=== PATIENT | male | born 1965 | race African-American/Black ===

== ENCOUNTER 2018-11-28 17:03 | Inpatient (IN) | payer OTHER ==
[~2018-11-28] VITALS: Ht 182.9 cm; Wt 88.5 kg
[~2018-11-28 17:03] MED LIST: ALLA266C2 TP; ASCO500T9 PO; BISA-79 PO; CEPH500C2 PO; CHOL400T11 PO; DIAZ10TA4 PO; DIAZ5TAB4 PO; DOCU250C14 PO; FENT1PAT10 TD; FERR1TAB44 PO; Folic Acid PO; Gel Dressing TP; HYDR4TAB57 PO; IVER3TAB2 PO; LACT10SO PO; LORA10TA7 PO; LORA2TAB PO; MULT-24 PO; OXYC-133 PO; ZOLP10TA6 PO
[2018-11-28] MEDS ORDERED: MORPHINE SULFATE INJ 2 MG/ML DISP.SYRIN IV ONE (17:30)
[2018-11-28] MEDS ORDERED: ONDANSETRON HCL/PF 4 MG/2 ML VIAL IVP ONE (17:30)
[2018-11-28] MEDS ORDERED: IV NS 0.9% 1,000 ML BAG IV ONE (17:30)
--- NOTE | 2018-11-28 17:48 | NUR ---
PT TO CT VIA GLORY
--- NOTE | 2018-11-28 18:06 | NUR ---
HUBERT RA 860 from [facility] "Headache. HTN". PT AAOX3, VSS. DENIES CP, SOB, DIZZINESS @ THIS TIME. RR EVEN & UNLABORED. SEEN & EVAL'D BY KAYA MONREAL. WILL CONT TO MONITOR.
--- NOTE | 2018-11-28 18:08 | NUR ---
CALLED NURSING TRACK REPAIRER FOR PICC RN.
[2018-11-28 18:14] LABS: BASOPHILS # (AUTO) 0.1 /CMM (0.0-0.2); BASOPHILS % (AUTO) 0.8 % (0.0-2.0); HEMATOCRIT 40 % (39-51); HEMOGLOBIN 12.9 g/dL (13.5-17.5); LYMPHOCYTES # (AUTO) 1.2 /CMM (0.8-4.8); LYMPHOCYTES % (AUTO) 7.1 % (20.0-44.0); MEAN CORPUSCULAR HGB CONC 32 g/dl (31.0-36.0); MEAN CORPUSCULAR VOLUME 83 fL (80-96); MONOCYTES # (AUTO) 1.6 /CMM (0.1-1.30); MONOCYTES % (AUTO) 9.7 % (2.0-12.0); NEUTROPHILS # (AUTO) 13.6 /CMM (1.8-8.9); NEUTROPHILS % (AUTO) 82.4 % (43.0-81.0); PLATELET COUNT (AUTO) 551 /CMM (150-450); RED BLOOD CELL COUNT(AUTO) 4.79 MIL/uL (4.5-6.0); WHITE BLOOD COUNT (AUTO) 16.5 K/uL (4.3-11.0)
--- NOTE | 2018-11-28 18:20 | NUR ---
CALLED [facility] TO [facility] [phone]. SPOKE WITH STAFF AND REQUESTED FOR MEDICAL RECORD.
[2018-11-28] MEDS ORDERED: MORPHINE SULFATE INJ 4 MG/ML DISP.SYRIN ONE ×2 (18:27→21:03)
[2018-11-28] MEDS ORDERED: MORPHINE SULFATE INJ 2 MG/ML DISP.SYRIN IM ONE ×2 (18:30→21:00)
--- NOTE | 2018-11-28 18:33 | NUR ---
MEDICATED FOR PAIN PER JOCELIN'S PA ORDER. PT CARLOS WELL.
[2018-11-28 18:44] LABS: CALCIUM, SERUM 9.7 mg/dL (8.5-10.1); CREATININE 0.8 mg/dL (0.6-1.3); POTASSIUM 3.8 mmol/L (3.5-5.1)
[2018-11-28 18:48] LABS: ALBUMIN 3.8 g/dL (3.4-5.0); BILIRUBIN,DIRECT 0.1 mg/dL (0.0-0.2); BILIRUBIN,TOTAL 0.4 mg/dL (0.2-1.0); TOTAL PROTEIN, SERUM 11.2 g/dL (6.4-8.2)
[2018-11-28] MEDS ORDERED: ASPIRIN 81 MG TAB.CHEW PO ONE (19:00)
--- NOTE | 2018-11-28 19:00 | NUR ---
PT REFUSED ASA 325 MG, KAYA MONREAL AWARE.
[2018-11-28 19:06] LABS: APPEARANCE,URINE Slightly Cloudy (CLEAR); BILIRUBIN,URINE Negative (NEGATIVE); BLOOD, URINE Large Ery/uL (NEGATIVE); COLOR,URINE Yellow (YELLOW); KETONES,URINE 40 (NEGATIVE); LEUKOCYTE ESTERASE ,URINE Moderate (NEGATIVE); NITRITE, URINE Positive (NEGATIVE); PH,URINE 8.5 (5.0-8.0); PROTEIN,URINE >=300 mg/dl (NEGATIVE); UGLUCOSE Negative (NEGATIVE); UROBILINOGEN,URINE 0.2 EU/dL (0.2)
[2018-11-28 19:31] LABS: BACTERIA,URINE 1+ /HPF (None Seen); RBC,URINE TOO NUMEROUS TO COUN /HPF (0-2); WBC,URINE 51-80 /HPF (0-3)
--- NOTE | 2018-11-28 19:32 | NUR ---
CALLED NURSING SUP TO NOTIFY ABOUT MIDLINE PLACEMENT.
[2018-11-28] MEDS ORDERED: LORAZEPAM INJ 2 MG/ML VIAL ONE ×2 (19:53→22:48)
--- NOTE | 2018-11-28 19:59 | NUR ---
MEDICATED PER JOCELIN KIRKPATRICK'S ORDER. PT REQUESTING MED TO RELAX HIM. PT CARLOS WELL.
[2018-11-28] MEDS ORDERED: CEFTRIAXONE 1GM BAG (ER ONLY) 1 GM/50 ML PIGGYBACK IV ONE (20:00)
[2018-11-28] MEDS ORDERED: LORAZEPAM INJ 2 MG/ML VIAL IM ONE (20:00)
--- NOTE | 2018-11-28 21:51 | NUR ---
CALLED RN SUP FOR TELE BED
--- NOTE | 2018-11-28 22:18 | NUR ---
RECIEVED BED 120-2
--- NOTE | 2018-11-28 22:30 | NUR ---
LAKSHMI, PICC LINE RN @ BS FOR MIDLINE INSERTION
--- NOTE | 2018-11-28 22:32 | NUR ---
DR. NAVAS SPEAKING TO KAYA LUJAN REGARDING ADMISSION.
[2018-11-28] MEDS ORDERED: CEFTRIAXONE 1GM BAG (ER ONLY) 50 ML IV ONE (22:34)
--- NOTE | 2018-11-28 22:55 | NUR ---
MEDICATED PER JOCELIN KIRKPATRICK'S ORDER, PT CARLOS WELL.
[2018-11-28] MEDS ORDERED: DEXTROSE 50%-WATER 50 ML DISP.SYRIN IV PRN (23:00)
[2018-11-28] MEDS ORDERED: LORAZEPAM INJ 2 MG/ML VIAL IV ONE (23:00)
[2018-11-28] MEDS ORDERED: CLONIDINE HCL 0.1 MG TABLET PO PRN (23:00)
[2018-11-28] MEDS ORDERED: *INSULIN REGULAR(HUMULIN R)HUM 100 UNIT/ML VIAL SQ PRN (23:00)
[2018-11-28] MEDS ORDERED: INSULIN REGULAR, HUMAN 100 UNIT/ML 3 ML VIAL SQ PRN (23:00)
[2018-11-28] MEDS ORDERED: ASPIRIN EC 81 MG TABLET.DR PO ONE (23:30)
[2018-11-28] MEDS ORDERED: MEROPENEM 500 MG in IV NS 0.9% 50 ML IV ONE (23:45)
[2018-11-28] MEDS ORDERED: METOPROLOL TARTRATE 25 MG TABLET PO ONE (23:45)
[2018-11-29] VITALS (9 sets, daily range): BP systolic 73–132; BP diastolic 45–84
[2018-11-29] MEDS ORDERED: LORAZEPAM INJ 2 MG/ML VIAL IV ONE (02:00)
[2018-11-29] MEDS ORDERED: HYDROMORPHONE HCL 2 MG TABLET PO ONE (02:00)
[2018-11-29] MEDS: IV 1/2NS 1000 ML 1,000 ML IV PRN ×3 (02:27→20:00)
[2018-11-29 05:57] LABS: BASOPHILS # (AUTO) 0.1 /CMM (0.0-0.2); EOSINOPHILS % (AUTO) 0.3 % (0.0-6.0); HEMATOCRIT 33 % (39-51); HEMOGLOBIN 10.8 g/dL (13.5-17.5); LYMPHOCYTES # (AUTO) 1.5 /CMM (0.8-4.8); LYMPHOCYTES % (AUTO) 13.8 % (20.0-44.0); MEAN CORPUSCULAR HGB CONC 33 g/dl (31.0-36.0); MEAN CORPUSCULAR VOLUME 83 fL (80-96); MONOCYTES # (AUTO) 1.1 /CMM (0.1-1.30); MONOCYTES % (AUTO) 10.6 % (2.0-12.0); NEUTROPHILS # (AUTO) 7.9 /CMM (1.8-8.9); NEUTROPHILS % (AUTO) 74.3 % (43.0-81.0); PLATELET COUNT (AUTO) 388 /CMM (150-450); RED BLOOD CELL COUNT(AUTO) 3.99 MIL/uL (4.5-6.0); WHITE BLOOD COUNT (AUTO) 10.7 K/uL (4.3-11.0)
[2018-11-29] MEDS ORDERED: MEROPENEM 500 MG VIAL IV ONE (06:26)
[2018-11-29] MEDS: MEROPENEM 500 MG in IV NS 0.9% 50 ML IV SCH ×3 (06:31→21:30)
--- NOTE | 2018-11-29 07:00 | NUR ---
HEALTH SCIENCE WRITER OPENING RECEIVED PATIENT A/OX4, ABLE TO TALK, ON ROOM AIR, TRACH IN PLACE, NO RESPIRATORY DISTRESS NOTED. TELE ATTACHED TO PATIENT, SINUS RHYTHM 95. COLOSTOMY BAG INTACT/DRAINING. SUPRAPUBIC DRAINING DARK YELLOW URINE. R UA MIDLINE C/D/I, PATENT, INFUSING FLUIDS ORDERED. DESCRIBES PAIN "SOMEONE STANDING ON HIM WITH HEELS". MD AWARE. PATIENT ABLE TO MAKE NEEDS KNOWN, BUT NOT ABLE TO USE CALL LIGHT. WILL CONT TO MONITOR
--- NOTE | 2018-11-29 07:06 | NUR ---
RN NOTES RECEIVED PATIENT VIA STRETCHER FROM ER ACCOMPANIED BY TWO STAFF WITH NO APPARENT DISTRESS, BREATHING EVEN AND UNLABORED. ON ROOM AIR VIA TRACH WITH PMV TOLERATING WELL. COLOSTOMY BAG AND SUPRAPUBIC CATH IN PLACE AND INTACT. SKIN ASSESSMENT DONE, PICTURES TAKEN. SPOKE WITH DR NAVAS AND ORDERED ONE TIME ATIVAN 2MG ONE TIME AND HYDROMORPHONE 4MG 1 TIME FOR PAIN AND ANXIETY. NOTED AND CARRIED OUT. KEPT CLEAN AND DRY. ENDORSED TO NEXT SHIFT FOR CONTINUITY OF CARE.
[2018-11-29] MEDS ORDERED: METOPROLOL TARTRATE 25 MG TABLET PO SCH (09:00)
[2018-11-29] MEDS: BLOOD SUGAR DIAGNOSTIC 1 EACH STRIP VI SCH ×4 (10:25→22:18)
[2018-11-29] MEDS ORDERED: IOHEXOL-350 100 ML VIAL IV ONE (10:53)
[2018-11-29] MEDS ORDERED: IV NS 0.9% 250 ML IV ONE (10:53)
[2018-11-29] MEDS ORDERED: CT SWABBABLE VALVE TRANS SET 1 EA INFUS.SET MC ONE (10:53)
[2018-11-29] MEDS ORDERED: IV NS 0.9% 500 ML IV ONE (11:00)
[2018-11-29] MEDS: LORAZEPAM INJ 2 MG/ML VIAL IV PRN ×3 (11:49→23:54)
[2018-11-29] MEDS ORDERED: NICO-676 TD (12:08)
[2018-11-29] MEDS ORDERED: METH500T7 PO (12:08)
[2018-11-29] MEDS ORDERED: OLOP2.5D5 EACHEYE (12:08)
[2018-11-29] MEDS ORDERED: GUAI118S20 PO (12:08)
[2018-11-29] MEDS ORDERED: ENOX40DI SQ (12:08)
[2018-11-29] MEDS ORDERED: ASCO500T9 PO (12:08)
[2018-11-29] MEDS ORDERED: TEMA15CA PO (12:08)
[2018-11-29] MEDS ORDERED: AMIN30LI24 PO (12:08)
[2018-11-29] MEDS ORDERED: ZINC220C8 PO (12:08)
[2018-11-29] MEDS ORDERED: CYAN-51 PO (12:08)
[2018-11-29] MEDS ORDERED: DIPH25CA83 PO (12:08)
[2018-11-29] MEDS ORDERED: ALBU6.7H9 IH (12:08)
[2018-11-29] MEDS ORDERED: FOLI1TAB16 PO (12:08)
[2018-11-29] MEDS ORDERED: LACTULOSE 10 G/15 ML UDC (PYXIS) PO PRN (14:30)
[2018-11-29] MEDS ORDERED: METHOCARBAMOL (500MG) 500 MG TABLET PO PRN (14:30)
[2018-11-29] MEDS ORDERED: MISCELLANEOUS MED 1 EA EA XX ONE (14:30)
[2018-11-29] MEDS ORDERED: ALBUTEROL FS 2.5 MG/3 ML VIAL.NEB NEB PRN (14:30)
[2018-11-29] MEDS ORDERED: Z GUARD REMEDY 2 OZ OINT TP PRN (14:30)
[2018-11-29] MEDS ORDERED: diphenhydrAMINE HCL 25 MG CAPSULE PO PRN (14:30)
[2018-11-29] MEDS ORDERED: GUAIFENESIN/CODEINE 10 ML UDC PO PRN (14:30)
[2018-11-29] MEDS ORDERED: DIAZEPAM 10 MG TABLET PO PRN (14:30)
--- NOTE | 2018-11-29 16:29 | NUR ---
interior horticulturist Spoke with Channel Rn pt vs sbp 79/50 hr 78 and notified her to contact MD regarding CT scan as test will be inconclusive as hr is not close to 60 Spoke with house sub and notified her regarding the findings will await for md decision regarding the test.
--- NOTE | 2018-11-29 16:45 | NUR ---
2L NS BOLUS GIVEN THIS SHIFT ORDERED PER DR. NAVAS, WHO IS AWARE RADIOLOGY IS UNABLE TO COMPLETE THE ORDERED SCAN Addendum: 11/29/18 at 2038 by ALEXY CARDOZA RN DUE TO LOW BLOOD PRESSURE. SEE DOCUMENTATION
--- NOTE | 2018-11-29 16:45 | NUR ---
ONE EPISODE OF BRADYCARDIA HR 36, 1 PVC + [address] NAVAS AWARE
--- NOTE | 2018-11-29 17:00 | NUR ---
PATIENT COMPLAINING OF HEADACHE, REQUESTING IV PAIN MEDICATION. PER DR. NAVAS, DUE TO LOW BP, NO. OFFERED PO PAIN MED, PATIENT REFUSED
[2018-11-29] MEDS: IV NS 0.9% 1,000 ML IV PRN (18:18)
[2018-11-29] MEDS: PROSOURCE / PROSTAT (PYXIS) 30 ML UDC PO SCH (18:19)
[2018-11-29] MEDS: ENOXAPARIN SODIUM 40 MG/0.4 ML DISP.SYRIN SQ SCH ×3 (21:00→22:04)
[2018-11-29] MEDS: FERROUS SULFATE (325 MG) 325 MG/TAB TABLET PO SCH (21:36)
[2018-11-29] MEDS: ATORVASTATIN 10 MG TABLET PO SCH (21:36)
[2018-11-29] MEDS: oxyCODONE/APAP (5/325 MG) 1 UDTAB TABLET PO PRN (21:41)
[2018-11-29] MEDS ORDERED: TEMAZEPAM 15 MG CAPSULE PO PRN (22:00)
[2018-11-30] VITALS (8 sets, daily range): BP systolic 94–145; BP diastolic 60–91
[2018-11-30] MEDS ORDERED: MORPHINE SULFATE INJ 2 MG/ML DISP.SYRIN SQ PRN (00:30)
[2018-11-30] MEDS: MORPHINE SULFATE INJ 2 MG/ML DISP.SYRIN IV PRN ×5 (01:14→19:21)
[2018-11-30] MEDS: MEROPENEM 500 MG in IV NS 0.9% 50 ML IV SCH ×3 (04:25→21:40)
[2018-11-30] MEDS: IV 1/2NS 1000 ML 1,000 ML IV PRN (04:48)
[2018-11-30] MEDS: LORAZEPAM INJ 2 MG/ML VIAL IV PRN ×3 (06:02→17:56)
[2018-11-30 07:26] LABS: BASOPHILS # (AUTO) 0.1 /CMM (0.0-0.2); BASOPHILS % (AUTO) 1.3 % (0.0-2.0); EOSINOPHILS % (AUTO) 9.3 % (0.0-6.0); HEMATOCRIT 29 % (39-51); HEMOGLOBIN 9.3 g/dL (13.5-17.5); LYMPHOCYTES # (AUTO) 1.7 /CMM (0.8-4.8); MEAN CORPUSCULAR HGB CONC 32 g/dl (31.0-36.0); MEAN CORPUSCULAR VOLUME 84 fL (80-96); MONOCYTES # (AUTO) 0.9 /CMM (0.1-1.30); MONOCYTES % (AUTO) 14.7 % (2.0-12.0); NEUTROPHILS # (AUTO) 2.9 /CMM (1.8-8.9); NEUTROPHILS % (AUTO) 46.7 % (43.0-81.0); PLATELET COUNT (AUTO) 311 /CMM (150-450); RED BLOOD CELL COUNT(AUTO) 3.44 MIL/uL (4.5-6.0); WHITE BLOOD COUNT (AUTO) 6.2 K/uL (4.3-11.0)
[2018-11-30] MEDS: BLOOD SUGAR DIAGNOSTIC 1 EACH STRIP VI SCH ×4 (07:38→22:55)
[2018-11-30 07:44] LABS: CALCIUM, SERUM 8.1 mg/dL (8.5-10.1); CREATININE 0.8 mg/dL (0.6-1.3); POTASSIUM 3.7 mmol/L (3.5-5.1)
--- NOTE | 2018-11-30 07:51 | NUR ---
ELECTRONIC CONSOLE DISPLAY OPERATOR OPENING RECEIVED PATIENT A/OX4, ABLE TO TALK, ON ROOM AIR, TRACH IN PLACE, NO RESPIRATORY DISTRESS NOTED. TELE ATTACHED TO PATIENT, SINUS RHYTHM HR 76 WITH REPORTS OF JUNCTIONAL RHYTHM. COLOSTOMY BAG INTACT/DRAINING. SUPRAPUBIC DRAINING. R UA MIDLINE C/D/I, PATENT, INFUSING FLUIDS ORDERED. PATIENT ABLE TO MAKE NEEDS KNOWN, BUT NOT ABLE TO USE CALL LIGHT. WILL CONT TO MONITOR
[2018-11-30] MEDS: IV NS 0.9% 1,000 ML IV PRN ×2 (08:10→09:58)
[2018-11-30] MEDS ORDERED: IV NS 0.9% 500 ML IV ONE (08:30)
[2018-11-30] MEDS: CARVEDILOL 3.125 MG TABLET PO SCH ×2 (09:30→21:42)
[2018-11-30] MEDS: CYANOCOBALAMIN 500 MCG TABLET PO SCH (12:19)
[2018-11-30] MEDS: ZINC SULFATE 220 MG CAPSULE PO SCH (12:20)
[2018-11-30] MEDS: FOLIC ACID 1 MG TABLET PO SCH (12:20)
[2018-11-30] MEDS: FERROUS SULFATE (325 MG) 325 MG/TAB TABLET PO SCH ×2 (12:20→21:41)
[2018-11-30] MEDS: ASCORBIC ACID 500 MG TABLET PO SCH (12:20)
[2018-11-30] MEDS: NICOTINE PATCH (21MG) 21 MG PATCH.TD24 TD SCH (12:21)
[2018-11-30] MEDS: PROSOURCE / PROSTAT (PYXIS) 30 ML UDC PO SCH ×2 (12:25→17:39)
[2018-11-30] MEDS: ASPIRIN 81 MG TAB.CHEW PO SCH (12:25)
[2018-11-30] MEDS ORDERED: IV NS 0.9% 250 ML IV ONE (13:41)
[2018-11-30] MEDS ORDERED: CT SWABBABLE VALVE TRANS SET 1 EA INFUS.SET MC ONE (13:41)
[2018-11-30] MEDS ORDERED: IOHEXOL-350 100 ML VIAL IV ONE (13:41)
[2018-11-30] MEDS ORDERED: METOPROLOL TARTRATE INJ 5 MG/5 ML AMPUL ONE (13:59)
[2018-11-30] MEDS: oxyCODONE/APAP (5/325 MG) 1 UDTAB TABLET PO PRN ×2 (16:36→22:34)
--- NOTE | 2018-11-30 19:00 | NUR ---
ADMINISTRATIVE JOB TITLES CLOSING NO SIGNIFICANT CHANGES NOTED THROUGHOUT SHIFT. PATIENT CONTINUES TO COMPLAIN OF PAIN. MEDICATED ORDERED. NO RESPIRATORY DISTRESS. ENDORSED TO NOC RN FOR MORIAH
--- NOTE | 2018-11-30 19:58 | NUR ---
LINE O SCRIBE OPERATOR OPENING RECEIVED PATIENT A/OX4, ABLE TO TALK, COMPLAINTS OF CHRONIC GENERALIZED PAIN, ON ROOM AIR, TRACH IN PLACE, NO RESPIRATORY DISTRESS NOTED. TELE ATTACHED TO PATIENT, SINUS RHYTHM HR 90s -100 WITH REPORTS OF JUNCTIONAL RHYTHM. COLOSTOMY BAG INTACT/DRAINING. SUPRAPUBIC DRAINING. R UA MIDLINE CLEAN DRY AND INTACT, PATENT, INFUSING FLUIDS ORDERED. PATIENT ABLE TO MAKE NEEDS KNOWN, BUT NOT ABLE TO USE CALL LIGHT. WILL CONTINUE TO MONITOR ACCORDINGLY.
[2018-11-30] MEDS: ATORVASTATIN 10 MG TABLET PO SCH (21:41)
[2018-12-01] MEDS: MORPHINE SULFATE INJ 2 MG/ML DISP.SYRIN IV PRN ×4 (00:28→14:23)
[2018-12-01 00:40] VITALS: BP 137/77
[2018-12-01 04:45] VITALS: BP 133/81
[2018-12-01] MEDS: MEROPENEM 500 MG in IV NS 0.9% 50 ML IV SCH (05:01)
[2018-12-01 06:47] LABS: BASOPHILS % (AUTO) 0.3 % (0.0-2.0); EOSINOPHILS % (AUTO) 5.4 % (0.0-6.0); HEMATOCRIT 34 % (39-51); HEMOGLOBIN 11.1 g/dL (13.5-17.5); LYMPHOCYTES # (AUTO) 1.9 /CMM (0.8-4.8); MEAN CORPUSCULAR HGB CONC 33 g/dl (31.0-36.0); MEAN CORPUSCULAR VOLUME 83 fL (80-96); MONOCYTES # (AUTO) 0.7 /CMM (0.1-1.30); MONOCYTES % (AUTO) 11.5 % (2.0-12.0); NEUTROPHILS % (AUTO) 50.8 % (43.0-81.0); PLATELET COUNT (AUTO) 346 /CMM (150-450); RED BLOOD CELL COUNT(AUTO) 4.12 MIL/uL (4.5-6.0); WHITE BLOOD COUNT (AUTO) 5.9 K/uL (4.3-11.0)
[2018-12-01 06:58] LABS: CALCIUM, SERUM 8.6 mg/dL (8.5-10.1); CREATININE 0.5 mg/dL (0.6-1.3); POTASSIUM 3.3 mmol/L (3.5-5.1)
[2018-12-01] MEDS: LORAZEPAM INJ 2 MG/ML VIAL IV PRN (07:15)
[2018-12-01] MEDS: IV 1/2NS 1000 ML 1,000 ML IV PRN (07:15)
--- NOTE | 2018-12-01 07:27 | NUR ---
PAPER MACHINE TENDER CLOSING NOTES PATIENT A/OX4, ABLE TO TALK, COMPLAINTS OF CHRONIC GENERALIZED PAIN, ON ROOM AIR, TRACH IN PLACE, NO RESPIRATORY DISTRESS NOTED. TELE ATTACHED TO PATIENT, SINUS RHYTHM HR 90s -100 WITH REPORTS OF JUNCTIONAL RHYTHM. COLOSTOMY BAG INTACT/DRAINING. SUPRAPUBIC DRAINING. R UA MIDLINE CLEAN DRY AND INTACT, PATENT, INFUSING FLUIDS ORDERED. PATIENT ABLE TO MAKE NEEDS KNOWN, ALL NEEDS ATTENDED, PAIN MEDICATION GIVEN PER PATIENT REQUEST FOR CHRONIC GENERALIZED PAIN, NOT ABLE TO USE CALL LIGHT. MONITORED AND CHECKED IN A TIMELY MANNER, ENDORSED TO AM NURSE FOR CONTINUITY OF CARE.
[2018-12-01 08:00] VITALS: BP 165/95
[2018-12-01] MEDS: BLOOD SUGAR DIAGNOSTIC 1 EACH STRIP VI SCH ×2 (08:30→12:13)
[2018-12-01] MEDS: FOLIC ACID 1 MG TABLET PO SCH (08:36)
[2018-12-01 08:37] VITALS: BP 165/95
[2018-12-01] MEDS: CYANOCOBALAMIN 500 MCG TABLET PO SCH (08:37)
[2018-12-01] MEDS: NICOTINE PATCH (21MG) 21 MG PATCH.TD24 TD SCH (08:37)
[2018-12-01] MEDS: ASCORBIC ACID 500 MG TABLET PO SCH (08:37)
[2018-12-01] MEDS: ZINC SULFATE 220 MG CAPSULE PO SCH (08:37)
[2018-12-01] MEDS: CARVEDILOL 3.125 MG TABLET PO SCH (08:37)
[2018-12-01] MEDS: FERROUS SULFATE (325 MG) 325 MG/TAB TABLET PO SCH (08:37)
[2018-12-01] MEDS: ASPIRIN 81 MG TAB.CHEW PO SCH (08:37)
[2018-12-01] MEDS: PROSOURCE / PROSTAT (PYXIS) 30 ML UDC PO SCH (08:38)
[2018-12-01] MEDS ORDERED: LEVO500T75 PO (10:12)
[2018-12-01] MEDS: POTASSIUM CL. PREMIX PERIPHER. 50 ML IV SCH ×2 (10:49→11:50)
[2018-12-01] MEDS ORDERED: LEVOFLOXACIN (500MG) 500 MG TABLET PO SCH (11:00)
--- NOTE | 2018-12-01 16:40 | NUR ---
COMPANY TRUCK DRIVER NOTE PT DISCHARGED TO [facility]. TAKEN BY PARAMEDICS, STABLE UPON DISCHARGE. ALL NEEDS ATTENDANT.
[2018-12-02] MEDS ORDERED: THERAHONEY GEL 1.5 OZ TUBE TP SCH (09:00)
[2018-12-02] MEDS ORDERED: COLLAGENASE 30 GM TUBE TP SCH (09:00)
== END 2018-12-01 17:25 | DRG 720 ==
LOC: ER 17:09 → TELE1 23:23
PROVIDERS: ADMIT Internal Medicine; ATTEND Internal Medicine
PROC: 05H533Z Insertion of Infusion Device into Right Subclavian Vein, Percutaneous Approach (ICD-10-PCS; principal; 2018-11-28)
PROC: 0JBQ0ZZ Excision of Right Foot Subcutaneous Tissue and Fascia, Open Approach (ICD-10-PCS; 2018-12-01)
DX: A41.9 Sepsis, unspecified organism (principal); I21.A1 Myocardial infarction type 2; J96.10 Chronic respiratory failure, unspecified whether with hypoxia or hypercapnia; E87.2 Acidosis; N39.0 Urinary tract infection, site not specified; G89.4 Chronic pain syndrome; F17.210 Nicotine dependence, cigarettes, uncomplicated; I10 Essential (primary) hypertension; Z87.440 Personal history of urinary (tract) infections; D63.8 Anemia in other chronic diseases classified elsewhere; V89.2XXS Person injured in unspecified motor-vehicle accident, traffic, sequela; Z93.3 Colostomy status; F41.9 Anxiety disorder, unspecified; B96.4 Proteus (mirabilis) (morganii) as the cause of diseases classified elsewhere; B96.89 Other specified bacterial agents as the cause of diseases classified elsewhere; G82.20 Paraplegia, unspecified; I70.248 Atherosclerosis of native arteries of left leg with ulceration of other part of lower leg; L97.829 Non-pressure chronic ulcer of other part of left lower leg with unspecified severity; I70.243 Atherosclerosis of native arteries of left leg with ulceration of ankle; L97.329 Non-pressure chronic ulcer of left ankle with unspecified severity; I70.244 Atherosclerosis of native arteries of left leg with ulceration of heel and midfoot; L97.429 Non-pressure chronic ulcer of left heel and midfoot with unspecified severity; I70.242 Atherosclerosis of native arteries of left leg with ulceration of calf; L97.229 Non-pressure chronic ulcer of left calf with unspecified severity; I70.238 Atherosclerosis of native arteries of right leg with ulceration of other part of lower leg; L97.819 Non-pressure chronic ulcer of other part of right lower leg with unspecified severity; I70.234 Atherosclerosis of native arteries of right leg with ulceration of heel and midfoot; L97.419 Non-pressure chronic ulcer of right heel and midfoot with unspecified severity; I70.235 Atherosclerosis of native arteries of right leg with ulceration of other part of foot; L97.519 Non-pressure chronic ulcer of other part of right foot with unspecified severity; L98.429 Non-pressure chronic ulcer of back with unspecified severity
CPT/HCPCS: 36415; 36569; 70450-TC; 71045-TC; 75574; 80048-TC; 80061-TC; 80076-TC; 81000-TC; 82962-TC; 83605-TC; 84484-TC; 85025-TC; 87040-TC; 87081-TC; 87086-TC; 87186-TC; 93307-TC; A4216; A6253; A6403; A7526; G0378; J0696; J1650; J1815; J2060; J2185; J2270; J3480; J3490; J7030; J7050; Q9967

== ENCOUNTER 2019-02-10 00:37 | Emergency (ER) | payer OTHER ==
[~2019-02-10] VITALS: Ht 182.9 cm; Wt 90.8 kg
[~2019-02-10 00:37] MED LIST changes: +ALBU6.7H9 IH; +AMIN30LI24 PO; -BISA-79 PO; -CEPH500C2 PO; -CHOL400T11 PO; +CYAN-51 PO; -DIAZ5TAB4 PO; +DIPH25CA83 PO; -DOCU250C14 PO; +ENOX40DI SQ; -FENT1PAT10 TD; +FOLI1TAB16 PO; -Folic Acid PO; +GUAI118S20 PO; -Gel Dressing TP; -HYDR4TAB57 PO; -IVER3TAB2 PO; +LEVO500T75 PO; -LORA10TA7 PO; -LORA2TAB PO; +METH500T7 PO; -MULT-24 PO; +NICO-676 TD; +OLOP2.5D5 EACHEYE; +TEMA15CA PO; +ZINC1CAP2 PO; -ZOLP10TA6 PO
--- NOTE | 2019-02-10 00:45 | NUR ---
PT BIB EMS TO ER BED 8 [facility]. STATES THAT HE HAD A SYNCOPAL EPISODE 3x LASTING ABOUT 4-10 SECONDS EACH. PT STATES HE HAS HX OF SEIZURE THAT WAS YEARS AGO, HE CAN'T REMEMBER. AAOX4. BREATHING EVENLY AND UNLABORED. CONNECTED TO MONITOR.
[2019-02-10] MEDS ORDERED: IV NS 0.9% 1,000 ML BAG IV ONE (01:00)
--- NOTE | 2019-02-10 01:00 | NUR ---
ADDENDUM: Intravenous End Time Documentation: Normal saline 1 liter (IV-WO) : start time: 0100 AM; end time: 0200 AM: IV site: Right upper Rory Cath Port #1
[2019-02-10 01:12] LABS: APPEARANCE,URINE Cloudy (CLEAR); BILIRUBIN,URINE Negative (NEGATIVE); BLOOD, URINE Large Ery/uL (NEGATIVE); COLOR,URINE Yellow (YELLOW); KETONES,URINE Negative (NEGATIVE); LEUKOCYTE ESTERASE ,URINE Large (NEGATIVE); NITRITE, URINE Negative (NEGATIVE); PH,URINE 7.5 (5.0-8.0); PROTEIN,URINE >=300 mg/dl (NEGATIVE); UGLUCOSE Negative (NEGATIVE); UROBILINOGEN,URINE 0.2 EU/dL (0.2)
[2019-02-10] MEDS ORDERED: LIDOCAINE/PRILOCAINE (5GM) 5 GM TUBE TP ONE (01:13)
--- NOTE | 2019-02-10 01:25 | NUR ---
MOBILE DEVICE DEVELOPER DRAWING BLOOD FROM PATIENT FOR LAB
--- NOTE | 2019-02-10 01:27 | NUR ---
QUALITY MANAGEMENT COORDINATOR AT BEDSIDE FOR X RAY
[2019-02-10] MEDS ORDERED: LIDOCAINE/PRILOCAINE 1 EA KIT TP ONE (01:30)
--- NOTE | 2019-02-10 01:30 | NUR ---
20G MARIAA NEEDLE PLACED ON RIGHT UPPER CHEST PORT-A-CATH.
[2019-02-10 01:45] LABS: CALCIUM, SERUM 9.3 mg/dL (8.5-10.1); CARBON DIOXIDE 23 mmol/L (21-32); CHLORIDE 99 mmol/L (98-107); CREATININE 0.9 mg/dL (0.6-1.3); GLUCOSE 219 mg/dL (74-106); POTASSIUM 3.1 mmol/L (3.5-5.1); SODIUM SERUM 134 mmol/L (136-145); UREA NITROGEN, BLOOD 30 mg/dL (7-18)
[2019-02-10 01:48] LABS: BASOPHILS # (AUTO) 0.1 /CMM (0.0-0.2); BASOPHILS % (AUTO) 0.7 % (0.0-2.0); EOSINOPHILS % (AUTO) 0.1 % (0.0-6.0); HEMATOCRIT 37 % (39-51); HEMOGLOBIN 12.1 g/dL (13.5-17.5); LYMPHOCYTES # (AUTO) 1.3 /CMM (0.8-4.8); LYMPHOCYTES % (AUTO) 5.9 % (20.0-44.0); MEAN CORPUSCULAR HGB CONC 32 g/dl (31.0-36.0); MEAN CORPUSCULAR VOLUME 82 fL (80-96); MONOCYTES # (AUTO) 2.5 /CMM (0.1-1.30); MONOCYTES % (AUTO) 11.8 % (2.0-12.0); NEUTROPHILS # (AUTO) 17.4 /CMM (1.8-8.9); NEUTROPHILS % (AUTO) 81.5 % (43.0-81.0); PLATELET COUNT (AUTO) 377 /CMM (150-450); RED BLOOD CELL COUNT(AUTO) 4.54 MIL/uL (4.5-6.0); WHITE BLOOD COUNT (AUTO) 21.3 K/uL (4.3-11.0)
[2019-02-10 01:51] LABS: ALANINE AMINOTRANSFERASE 23 U/L (12-78); ALBUMIN 3.4 g/dL (3.4-5.0); ALKALINE PHOSPHATASE 138 U/L (46-116); ASPARTATE AMINOTRANSFERASE 20 U/L (15-37); BILIRUBIN,DIRECT 0.2 mg/dL (0.0-0.2); BILIRUBIN,TOTAL 0.6 mg/dL (0.2-1.0); TOTAL PROTEIN, SERUM 9.9 g/dL (6.4-8.2)
[2019-02-10] MEDS ORDERED: LORAZEPAM INJ 2 MG/ML VIAL ONE ×2 (02:11→06:34)
[2019-02-10] MEDS ORDERED: CEFTRIAXONE 1GM BAG (ER ONLY) 50 ML IV ONE (02:27)
[2019-02-10] MEDS ORDERED: LORAZEPAM INJ 2 MG/ML VIAL IV ONE ×2 (02:30→06:30)
[2019-02-10] MEDS ORDERED: CEFTRIAXONE 1 G in IV D5W 50 ML IV ONE (02:30)
[2019-02-10 03:26] LABS: BACTERIA,URINE Many /HPF (None Seen); SQUAMOUS EPITHELIAL CELL,UR Rare /HPF (None Seen); WBC,URINE 21-50 /HPF (0-3)
--- NOTE | 2019-02-10 03:46 | NUR ---
DR. ALEMAN ON THE PHONE WITH MELQUIADES HURD, DR. SAWYER
--- NOTE | 2019-02-10 03:49 | NUR ---
PATIENT IS WATCHING TELEVISION. ALERT AND ORIENTED. PATIENT IS NOT IN ANY DISTRESS. CONNECTED TO MONITOR. WAITING FOR A ROOM IN ADMISSION
--- NOTE | 2019-02-10 04:06 | NUR ---
PER MEHDI ([facility] MILL OPERATOR, ). PT WILL BE TRANSFERRED TO [facility], PENDING MD TO .
--- NOTE | 2019-02-10 04:46 | NUR ---
TRANSFER INFO: PT WILL BE TRANSFERED TO [facility] PER INSURANCE REQUEST NUMBER FOR REPORT: [phone] NURSE FOR REPORT: ROSANA ARNETT WILL CALL BACK WITH TRANSPORTATION ETA
--- NOTE | 2019-02-10 04:55 | NUR ---
REPORT GIVEN TO ROSANA AHMADI FOR MORIAH.
--- NOTE | 2019-02-10 05:01 | NUR ---
ROSANA RN CONTACT CALL BACK FOR ETA OF TRANSPORTATION - [phone]
--- NOTE | 2019-02-10 05:50 | NUR ---
MEHDI FROM [facility] CALLED RE: PT TRANSFER TO [facility] . PT IS GOING TO ROOM 218 B CALL REPORT TO GALDINO WAYNE AT [phone]
--- NOTE | 2019-02-10 05:53 | NUR ---
[facility]A IS PICKING UP PT AT [phone]
--- NOTE | 2019-02-10 06:31 | NUR ---
[facility] CALLED REGARDING TRANSPORTATION ETA
--- NOTE | 2019-02-10 07:25 | NUR ---
report given Jorge AHMADI. for MORIAH
--- NOTE | 2019-02-10 07:25 | NUR ---
RECEIVED REPORT FOR GALDINO BREWRE FOR MORIAH, PT IS AAOX3, NOT IN RESPIRATORY, VS STABLE, KEPT RESTED AND COMFORTABLE, AWAITING AMBULANCE FOR TRANSFER TO [facility].
[2019-02-10] MEDS ORDERED: MORPHINE SULFATE INJ 4 MG/ML DISP.SYRIN ONE (07:50)
[2019-02-10] MEDS ORDERED: MORPHINE SULFATE INJ 2 MG/ML DISP.SYRIN IV ONE (08:00)
--- NOTE | 2019-02-10 08:21 | NUR ---
REPORT GIVEN TO EMT FOR PT TRANSFER TO [facility].
[2019-02-10 08:22] VITALS: BP 145/80
== END 2019-02-10 08:50 | disposition short-term general hospital (02) ==
LOC: ER 00:39
DX: N39.0 Urinary tract infection, site not specified (principal); R55 Syncope and collapse; F41.9 Anxiety disorder, unspecified; I10 Essential (primary) hypertension; G82.50 Quadriplegia, unspecified; Z98.890 Other specified postprocedural states; Z90.89 Acquired absence of other organs; Z79.899 Other long term (current) drug therapy
CPT/HCPCS: 36415; 70450; 71045; 80048; 80076; 81001; 84484; 85025; 85730; 86850; 87077; 87081; 87086; 87186; 93005; 96361; 96365; 96375; 96376; 99285; J0696; J2060 ×2; J2270; J7030; J7060; 81000-TC